=== PATIENT | female | born 1990 | race Caucasian/White ===

== ENCOUNTER 2017-01-25 10:31 | Emergency (ER) | payer MEDICAID ==
[~2017-01-25] VITALS: Ht 170.2 cm; Wt 68.0 kg
[2017-01-25 10:32] VITALS: BP 124/77; PULSE 87; RESP 18; TEMP 97.9; O2SAT 99
[2017-01-25] MEDS ORDERED: SODIUM CHLOR 0.9% 1000 ML INJ 1,000 ML IV SCH (10:49)
--- NOTE | 2017-01-25 10:55 | PD ---
HPI Chief Complaint: GI Complaint Time Seen by Provider: 10:44 Travel History International Travel<30 days: No Contact w/Intl Traveler<30days: No Traveled to known affect area: No History of Present Illness HPI Patient is a 26-year-old female who presents to emergency with complaints of abdominal pain. Patient reports that she is having increased upper abdominal pain which has been ongoing and constant for the past 2 weeks. Reports that she feels nauseous with symptoms, no vomiting. Reports that she has had a few episodes of diarrhea. Reports that due to her symptoms, she has had overall decreased oral intake. Patient reports that she is sexually active, patient unsure if she may be this time. Patient with no fevers or chills, no sick contacts, no recent travels. Denies vaginal discharge or bleeding PFSH Past Medical History Medical History: Denies Significant Hx Influenza Vaccination: No ?: Unknown LMP: BEGINNING DECEMBER 2016 : 2 Para: 0 : 1 Past Surgical History Oral Surgery: Yes Social History Alcohol Use: No Tobacco Use: No Substance Use: No Allergies-Medications (Allergen,Severity, Reaction): Coded Allergies: ibuprofen (Unverified Allergy, Severe, Swelling, 01/25/17) Reported Meds & Prescriptions Reported Meds & Active Scripts Active Omeprazole 40 Mg Cap 40 Mg PO DAILY Review of Systems General / Constitutional: No: Fever, Chills Eyes: No: Visual changes HENT: No: Headaches Cardiovascular: No: Chest Pain or Discomfort Respiratory: No: Shortness of Breath Gastrointestinal: Positive: Nausea, Diarrhea, Abdominal Pain, No: Vomiting, Constipation Genitourinary: No: Urgency, Frequency, Dysuria Musculoskeletal: No: Pain Skin: No Rash Neurologic: No: Weakness, Dizziness Psychiatric: No: Depression Endocrine: No: Polydipsia Hematologic/Lymphatic: No: Easy Bruising Physical Exam Narrative GENERAL: Moderate distress SKIN: Focused skin assessment warm/dry. HEAD: Atraumatic. Normocephalic. EYES: Pupils equal and round. No scleral icterus. No injection or drainage. ENT: No nasal bleeding or discharge. Mucous membranes pink and moist. NECK: Trachea midline. No JVD. CARDIOVASCULAR: Regular rate and rhythm. No murmur appreciated. RESPIRATORY: No accessory muscle use. Clear to auscultation. Breath sounds equal bilaterally. GASTROINTESTINAL: Abdomen soft, increased lower abdominal tenderness with no rebound or guarding, nondistended. Hepatic and splenic margins not palpable. MUSCULOSKELETAL: No obvious deformities. No clubbing. No cyanosis. No edema. NEUROLOGICAL: Awake and alert. No obvious cranial nerve deficits. Motor grossly within normal limits. Normal speech. PSYCHIATRIC: Appropriate mood and affect; insight and judgment normal. Data Data Last Documented VS Vital Signs Date Time Temp Pulse Resp B/P (MAP) Pulse Ox O2 Delivery O2 Flow Rate FiO2 01/25/17 10:32 97.9 87 18 124/77 (93) 99 Room Air Orders Orders Complete Blood Count With Diff (01/25/17 10:49) Comprehensive Metabolic Panel (01/25/17 10:49) Prothrombin Time / Inr (Pt) (01/25/17 10:49) Act Partial Throm Time (Ptt) (01/25/17 10:49) Urinalysis - C+S If Indicated (01/25/17 10:49) Ct Abd/Pel W Iv Contrast(Rout) (01/25/17 10:49) Iv Access Insert/Monitor (01/25/17 10:49) Ecg Monitoring (01/25/17 10:49) Oximetry (01/25/17 10:49) Ondansetron Inj (Zofran Inj) (01/25/17 11:00) Sodium Chlor 0.9% 1000 Ml Inj (Ns 1000 M (01/25/17 10:49) Sodium Chloride 0.9% Flush (Ns Flush) (01/25/17 11:00) Famotidine Inj (Pepcid Inj) (01/25/17 11:00) Ed Urine Pregnancytest Poc (01/25/17 10:49) Iohexol 350 Inj (Omnipaque 350 Inj) (01/25/17 11:34) Ed Discharge Order (01/25/17 12:32) Labs Laboratory Tests Test 01/25/17 10:57 White Blood Count 6.6 TH/MM3 Red Blood Count 4.52 MIL/MM3 Hemoglobin 13.2 GM/DL Hematocrit 39.7 % Mean Corpuscular Volume 87.9 FL Mean Corpuscular Hemoglobin 29.2 PG Mean Corpuscular Hemoglobin Concent 33.2 % Red Cell Distribution Width 14.7 % Platelet Count 189 TH/MM3 Mean Platelet Volume 8.6 FL Neutrophils (%) (Auto) 65.1 % Lymphocytes (%) (Auto) 26.3 % Monocytes (%) (Auto) 5.5 % Eosinophils (%) (Auto) 2.6 % Basophils (%) (Auto) 0.5 % Neutrophils # (Auto) 4.3 TH/MM3 Lymphocytes # (Auto) 1.7 TH/MM3 Monocytes # (Auto) 0.4 TH/MM3 Eosinophils # (Auto) 0.2 TH/MM3 Basophils # (Auto) 0.0 TH/MM3 CBC Comment DIFF FINAL Differential Comment Prothrombin Time 11.4 SEC Prothromb Time International Ratio 1.0 RATIO Activated Partial Thromboplast Time 28.3 SEC Urine Color YELLOW Urine Turbidity CLEAR Urine pH 6.0 Urine Specific [place] 1.028 Urine Protein 30 mg/dL Urine Glucose (UA) NEG mg/dL Urine Ketones 150 mg/dL Urine Occult Blood NEG Urine Nitrite NEG Urine Bilirubin NEG Urine Urobilinogen 2.0 MG/DL Urine Leukocyte Esterase NEG Urine RBC LESS THAN 1 /hpf Urine WBC 2 /hpf Urine Squamous Epithelial Cells 1 /hpf Urine Mucus MANY /lpf Microscopic Urinalysis Comment CULT NOT INDICATED Blood Urea Nitrogen 13 MG/DL Creatinine 0.74 MG/DL Random Glucose 79 MG/DL Total Protein 8.2 GM/DL Albumin 4.4 GM/DL Calcium Level 9.0 MG/DL Alkaline Phosphatase 49 U/L Aspartate Amino Transf (AST/SGOT) 11 U/L Alanine Aminotransferase (ALT/SGPT) 15 U/L Total Bilirubin 1.0 MG/DL Sodium Level 138 MEQ/L Potassium Level 3.8 MEQ/L Chloride Level 105 MEQ/L Carbon Dioxide Level 20.7 MEQ/L Anion Gap 12 MEQ/L Estimat Glomerular Filtration Rate 95 ML/MIN [facility] Medical Decision Making Medical Screen Exam Complete: Yes Emergency Medical Condition: Yes Medical Record Reviewed: Yes Interpretation(s) Vital Signs Date Time Temp Pulse Resp B/P (MAP) Pulse Ox O2 Delivery O2 Flow Rate FiO2 01/25/17 10:32 97.9 87 18 124/77 (93) 99 Room Air Differential Diagnosis Differential includes gastritis, gastroenteritis, esophagitis Narrative Course During the course of the patients emergency department visit, the patients history, examination, and differential diagnosis were reviewed with the patient. The patient was placed on a satellite project site monitor with oximetry and frequent blood pressure monitoring. The patient had 20 gauge IV access obtained and blood work sent for analysis. The patient was initially provided IVF, IV pepcid and zofran. The patients laboratory studies were reviewed and remarkable for: CBC: wnl BMP: carbon dioxide 20.7, sodium 138, potassium 3.8, BUN 13, creatinine 0.74, LFT's: WNL UA: Many mucous, 150 ketones, 30 protein Radiology studies were reviewed and remarkable for: Negative CT of the abdomen pelvis with contrast other than splenic cyst and probable left ovarian cyst Patient is feeling much better at this time. I reviewed all labs and all studies with patient in detail including all incidental findings. Copies of studies were given to patient as she understands that she will need to follow up with her pcp. Patient will follow-up with her primary care doctor and will return to emergency room as needed. Diagnosis Primary Impression: Gastritis Additional Impressions: Abdominal pain Dehydration Ovarian cyst Splenic cyst Patient Instructions: General Instructions Additional Instructions: Please provide patient with a copy of their lab work and studies at discharge* * Please follow up with your primary care doctor in 2-3 days Return to the ER if symptoms worsen or progress Return to the ER as needed Med/Other Pt SpecificInfo: Prescription(s) given Scripts Omeprazole (Omeprazole) 40 Mg Cap 40 MG PO DAILY, #30 CAP 0 Refills Prov: Lorna Hopkins DO 01/25/17 Disposition: 01 DISCHARGE HOME Condition: Stable Lorna Hopkins DO Jan 25, 2017 10:55
[2017-01-25] MEDS ORDERED: SODIUM CHLORIDE 0.9% FLUSH 10 ML FLUSH IV FLUSH PRN (11:00)
[2017-01-25] MEDS ORDERED: FAMOTIDINE 20 MG/2 ML VIAL IV PUSH ONE (11:00)
[2017-01-25] MEDS ORDERED: ONDANSETRON HCL 4 MG/2 ML VIAL IVP ONE (11:00)
[2017-01-25 11:17] LABS: AUTOMATED NEUTROPHIL # 4.3 TH/MM3 (1.8-7.7); BASOPHIL % 0.5 % (0.0-2.0); EOSINOPHIL # 0.2 TH/MM3 (0-0.4); EOSINOPHIL % 2.6 % (0.0-4.0); HEMATOCRIT 39.7 % (35.0-46.0); HEMO FLAGS DIFF FINAL; LYMPH % 26.3 % (9.0-44.0); LYMPHOCYTE # 1.7 TH/MM3 (1.0-4.8); MEAN CELL VOLUME 87.9 FL (80.0-100.0); MEAN CORPUSCULAR HEMOGLOBIN 29.2 PG (27.0-34.0); MEAN CORPUSCULAR HGB CONC 33.2 % (32.0-36.0); MONO % 5.5 % (0.0-8.0); NEUT % 65.1 % (16.0-70.0); PLATELET COUNT 189 TH/MM3 (150-450); RED BLOOD COUNT 4.52 MIL/MM3 (4.00-5.30); RED CELL DISTRIBUTION WIDTH 14.7 % (11.6-17.2); WHITE BLOOD COUNT 6.6 TH/MM3 (4.0-11.0)
[2017-01-25 11:29] LABS: APTT (PATIENT) 28.3 SEC (24.3-30.1); PROTHROMBIN TIME - PATIENT 11.4 SEC (9.8-11.6)
[2017-01-25] MEDS ORDERED: IOHEXOL 350 MG/ML 10 ML VIAL (for RAD DIAG) IVCONTRAST ONE (11:34)
[2017-01-25 11:36] LABS: ALT (GPT) 15 U/L (10-53); ANION GAP 12 MEQ/L (5-15); AST (GOT) 11 U/L (15-37); BICARBONATE 20.7 MEQ/L (21.0-32.0); BLOOD UREA NITROGEN 13 MG/DL (7-18); BLOOD, URINE NEG (NEG); CHLORIDE 105 MEQ/L (98-107); COMMENT (UR) CULT NOT INDICATED; CULTURE IF INDICATED CULT NOT INDICATED; GLOMERULAR FILTRATION RATE 95 ML/MIN (>89); GLUCOSE,URINE NEG (NEG); KETONE, URINE 150 mg/dL (NEG); MUCUS URINE MANY /lpf (OCC); NITRITE,URINE NEG (NEG); POTASSIUM 3.8 MEQ/L (3.5-5.1); SODIUM (NA) 138 MEQ/L (136-145); SQUAMOUS EPITHELIAL CELL URINE 1 /hpf (0-5); URINE COLOR YELLOW (YELLW/STRAW)
[2017-01-25 11:37] LABS: ALKALINE PHOSPHATASE 49 U/L (45-117)
--- NOTE | 2017-01-25 12:06 | RADRPT ---
EXAM DATE/TIME: 01/25/2017 11:32 [facility] COMPARISON: No previous studies available for comparison. INDICATIONS : Nausea for 2 weeks IV CONTRAST: 85 cc Omnipaque 350 (iohexol) IV ORAL CONTRAST: No oral contrast ingested. RADIATION DOSE: 7.73 CTDIvol (mGy) MEDICAL HISTORY : None SURGICAL HISTORY : None. ENCOUNTER: Initial ACUITY: 2 weeks PAIN SCALE: 3/10 LOCATION: abdomen TECHNIQUE: Volumetric scanning of the abdomen and pelvis was performed. Using automated exposure control and ad justment of the mA and/or kV according to patient size, radiation dose was kept as low as reasonably achievable to obtain optimal diagnostic quality images. DICOM format image data is available electro nically for review and comparison. FINDINGS: LOWER LUNGS: The visualized lower lungs are clear. LIVER: Homogeneous density without lesion. There is no dilation of the biliary tree. No calcified gallston es. SPLEEN: 6.5 cm simple cyst in the medial upper pole of the spleen with smooth margins and no calcifications. PANCREAS: Within normal limits. KIDNEYS: Normal in size and shape. There is no mass, stone or hydronephrosis. ADRENAL GLANDS: Within normal limits. VASCULAR: There is no aortic aneurysm. BOWEL/MESENTERY: No dilated loops of small or large bowel. ABDOMINAL WALL: Within normal limits. RETROPERITONEUM: There is no lymphadenopathy. BLADDER: No wall thickening or mass. REPRODUCTIVE: IUD in the anteverted uterus. Fullness in the left adnexa with probable ovarian cysts. No evidence of free fluid. INGUINAL: There is no lymphadenopathy or hernia. MUSCULOSKELETAL: Within normal limits for patient age. CONCLUSION: Negative CT abdomen/pelvis with contrast other than splenic cyst and probable left ovarian cyst. Phoenix Carrasquillo MD on January 25, 2017 at 11:43 Board Certified Radiologist. This report was verified electronically.
[2017-01-25] MEDS ORDERED: OMEP40CA2 PO (12:25)
== END 2017-01-25 12:44 | disposition home or self-care (01) ==
LOC: NEPD 10:31
DX: K29.70 Gastritis, unspecified, without bleeding (principal); E86.0 Dehydration; D73.4 Cyst of spleen
CPT/HCPCS: 74177; 80053; 81001; 84703; 85025; 85610; 85730; 96361; 96374; 96375; 99285; J2405; J7030; Q9967

== ENCOUNTER 2017-01-28 23:22 | Emergency (ER) | payer MEDICAID ==
[~2017-01-28] VITALS: Ht 170.2 cm; Wt 70.0 kg
[~2017-01-28 23:22] MED LIST: OMEP40CA2 PO
[2017-01-28 23:23] VITALS: BP 118/81; PULSE 84; RESP 14; TEMP 98.3; O2SAT 99
[2017-01-29 02:00] VITALS: BP 117/75; PULSE 84; RESP 18; O2SAT 99
[2017-01-29] MEDS ORDERED: ONDANSETRON HCL 4 MG/2 ML VIAL IV PUSH ONE ×2 (02:45→05:15)
[2017-01-29] MEDS ORDERED: MORPHINE SULFATE 4 MG/ML INJ IV PUSH ONE (02:45)
[2017-01-29 03:08] LABS: BLOOD, URINE NEG (NEG); CALCIUM OXALATE CRYSTALS,URINE OCC /hpf; GLUCOSE,URINE NEG (NEG); KETONE, URINE 10 mg/dL (NEG); MUCUS URINE MANY /lpf (OCC); NITRITE,URINE NEG (NEG); PH, URINE 5.5 (5.0-8.5); SQUAMOUS EPITHELIAL CELL URINE <1 /hpf (0-5); URINE COLOR YELLOW (YELLW/STRAW)
[2017-01-29 03:09] LABS: COMMENT (UR) CULT NOT INDICATED; CULTURE IF INDICATED CULT NOT INDICATED
--- NOTE | 2017-01-29 03:10 | PD ---
HPI Chief Complaint: Flank/Kidney Pain Time Seen by Provider: 02:31 Travel History International Travel<30 days: No Contact w/Intl Traveler<30days: No Traveled to known affect area: No History of Present Illness HPI 26yo F presents to the ED with c/o left sided flank pain today. Associated with nausea. No alleviating or exacerbating factors. Denies any fever, chest pain, sob, dysuria, hematuria, vaginal bleeding or discharge. PFSH Past Medical History ?: Not LMP: 01/16/17 : 2 Para: 0 : 1 Past Surgical History Oral Surgery: Yes Social History Alcohol Use: No Tobacco Use: No Substance Use: No Allergies-Medications (Allergen,Severity, Reaction): Coded Allergies: ibuprofen (Unverified Allergy, Severe, Swelling, 01/29/17) Reported Meds & Prescriptions Reported Meds & Active Scripts Active Omeprazole 40 Mg Cap 40 Mg PO DAILY Review of Systems Except as stated in HPI: all other systems reviewed are Neg Physical Exam Narrative GENERAL: 26yo F in mild distress. SKIN: Focused skin assessment warm/dry. HEAD: Atraumatic. Normocephalic. EYES: Pupils equal and round. No scleral icterus. No injection or drainage. CARDIOVASCULAR: Regular rate and rhythm. No murmur appreciated. RESPIRATORY: No accessory muscle use. Clear to auscultation. Breath sounds equal bilaterally. GASTROINTESTINAL: Abdomen +TTP left flank. No rebound tenderness or guarding. MUSCULOSKELETAL: No obvious deformities. No clubbing. No cyanosis. No edema. NEUROLOGICAL: Awake and alert. No obvious cranial nerve deficits. Motor grossly within normal limits. Normal speech. PSYCHIATRIC: Appropriate mood and affect; insight and judgment normal. Data Data Last Documented VS Vital Signs Date Time Temp Pulse Resp B/P (MAP) Pulse Ox O2 Delivery O2 Flow Rate FiO2 01/29/17 04:38 79 18 121/76 (91) 97 Room Air 01/28/17 23:23 98.3 Orders Orders Ed Urine Pregnancytest Poc (01/29/17 02:37) Urinalysis - C+S If Indicated (01/29/17 02:37) Complete Blood Count With Diff (01/29/17 02:37) Basic Metabolic Panel (Bmp) (01/29/17 02:37) Ct Abd/Pel W/O Iv Contrast (01/29/17 ) Ondansetron Inj (Zofran Inj) (01/29/17 02:45) Morphine Inj (Morphine Inj) (01/29/17 02:45) Ondansetron Inj (Zofran Inj) (01/29/17 05:15) Labs Laboratory Tests Test 01/29/17 02:50 White Blood Count 6.4 TH/MM3 Red Blood Count 4.39 MIL/MM3 Hemoglobin 12.8 GM/DL Hematocrit 38.2 % Mean Corpuscular Volume 87.2 FL Mean Corpuscular Hemoglobin 29.2 PG Mean Corpuscular Hemoglobin Concent 33.5 % Red Cell Distribution Width 14.3 % Platelet Count 171 TH/MM3 Mean Platelet Volume 8.6 FL Neutrophils (%) (Auto) 54.0 % Lymphocytes (%) (Auto) 30.3 % Monocytes (%) (Auto) 6.0 % Eosinophils (%) (Auto) 9.1 % Basophils (%) (Auto) 0.6 % Neutrophils # (Auto) 3.4 TH/MM3 Lymphocytes # (Auto) 1.9 TH/MM3 Monocytes # (Auto) 0.4 TH/MM3 Eosinophils # (Auto) 0.6 TH/MM3 Basophils # (Auto) 0.0 TH/MM3 CBC Comment DIFF FINAL Differential Comment Urine Color YELLOW Urine Turbidity HAZY Urine pH 5.5 Urine Specific [place] 1.018 Urine Protein TRACE mg/dL Urine Glucose (UA) NEG mg/dL Urine Ketones 10 mg/dL Urine Occult Blood NEG Urine Nitrite NEG Urine Bilirubin NEG Urine Urobilinogen LESS THAN 2.0 MG/DL Urine Leukocyte Esterase NEG Urine RBC 2 /hpf Urine WBC 2 /hpf Urine Squamous Epithelial Cells <1 /hpf Urine Calcium Oxalate Crystals OCC /hpf Urine Mucus MANY /lpf Microscopic Urinalysis Comment CULT NOT INDICATED Blood Urea Nitrogen 11 MG/DL Creatinine 0.93 MG/DL Random Glucose 85 MG/DL Calcium Level 8.9 MG/DL Sodium Level 140 MEQ/L Potassium Level 3.4 MEQ/L Chloride Level 106 MEQ/L Carbon Dioxide Level 25.8 MEQ/L Anion Gap 8 MEQ/L Estimat Glomerular Filtration Rate 73 ML/MIN [facility] Medical Decision Making Medical Screen Exam Complete: Yes Emergency Medical Condition: Yes Differential Diagnosis Pyelonephritis vs. nephrolithiasis vs. musculoskeletal pain Narrative Course 26yo F with left flank pain and nausea. Labs reviewed, no leukocytosis. BMP unremarkable. UA showed occasional calcium oxylate crystal. No leukocyte. Urine . CT a/p showed no renal or ureteral calculi. No hydronephrosis. 7cm hypodense mass in spleen that represent a mass. Instructed pt to follow up with primary care physician as outpatient. Pt given morphine and zofran and pain has resolved. Return precautions given. Diagnosis Primary Impression: Abdominal pain Qualified Codes: R10.12 - Left upper quadrant pain Patient Instructions: General Instructions Departure Forms: Tests/Procedures Additional Instructions: 7cm round cyst was again identified in the spleen. Please follow up with your primary care physician regarding this. Return to the ED if symptoms worsen. Med/Other Pt SpecificInfo: Prescription(s) given Scripts Acetaminophen (Tylenol) 325 Mg Tab 650 MG PO Q6H Y for PAIN SCALE 1 TO 4, #20 TAB 0 Refills Prov: Radha High 01/29/17 Disposition: 01 DISCHARGE HOME Condition: Stable Radha High DO Jan 29, 2017 03:10
[2017-01-29 03:19] LABS: BICARBONATE 25.8 MEQ/L (21.0-32.0); POTASSIUM 3.4 MEQ/L (3.5-5.1)
[2017-01-29 03:25] LABS: AUTOMATED NEUTROPHIL # 3.4 TH/MM3 (1.8-7.7); BASOPHIL % 0.6 % (0.0-2.0); EOSINOPHIL # 0.6 TH/MM3 (0-0.4); EOSINOPHIL % 9.1 % (0.0-4.0); HEMATOCRIT 38.2 % (35.0-46.0); HEMO FLAGS DIFF FINAL; LYMPH % 30.3 % (9.0-44.0); LYMPHOCYTE # 1.9 TH/MM3 (1.0-4.8); MEAN CELL VOLUME 87.2 FL (80.0-100.0); MEAN CORPUSCULAR HEMOGLOBIN 29.2 PG (27.0-34.0); MEAN CORPUSCULAR HGB CONC 33.5 % (32.0-36.0); PLATELET COUNT 171 TH/MM3 (150-450); RED BLOOD COUNT 4.39 MIL/MM3 (4.00-5.30); RED CELL DISTRIBUTION WIDTH 14.3 % (11.6-17.2); WHITE BLOOD COUNT 6.4 TH/MM3 (4.0-11.0)
--- NOTE | 2017-01-29 03:28 | RADRPT ---
EXAM DATE/TIME: 01/29/2017 03:03 [facility] COMPARISON: No previous studies available for comparison. INDICATIONS : Left flank pain. Evaluate for calculi. ORAL CONTRAST: No oral contrast ingested. RADIATION DOSE: 5.86 CTDIvol (mGy) MEDICAL HISTORY : None SURGICAL HISTORY : None. ENCOUNTER: Initial ACUITY: 2 days PAIN SCALE: 5/10 LOCATION: Left flank TECHNIQUE: Volumetric scanning of the abdomen and pelvis was performed. Using automated exposure control and ad justment of the mA and/or kV according to patient size, radiation dose was kept as low as reasonably achievable to obtain optimal diagnostic quality images. DICOM format image data is available electro nically for review and comparison. FINDINGS: LOWER LUNGS: The visualized lower lungs are clear. LIVER: Homogeneous density without lesion. There is no dilation of the biliary tree. No calcified gallston es. SPLEEN: 7 cm round cyst again identified medial anterior aspect of the spleen PANCREAS: Within normal limits. KIDNEYS: Normal in size and shape. There is no mass, stone, or hydronephrosis. ADRENAL GLANDS: Within normal limits. VASCULAR: There is no aortic aneurysm. BOWEL/MESENTERY: No evidence of bowel dilatation. No free air or free fluid. Appendix within normal limits. ABDOMINAL WALL: Within normal limits. RETROPERITONEUM: There is no lymphadenopathy. BLADDER: No wall thickening or mass. REPRODUCTIVE: IUD is seen centered in the uterus. INGUINAL: There is no lymphadenopathy or hernia. MUSCULOSKELETAL: Within normal limits for patient age. CONCLUSION: 1. No renal or ureteral calculi. No hydronephrosis. 2. 7 cm round hypodense mass in the spleen. Shown to represent a cyst on recent contrast-enhanced krissy dy. Johnny Smith MD on January 29, 2017 at 3:15 Board Certified Radiologist. This report was verified electronically.
[2017-01-29 04:38] VITALS: BP 121/76; PULSE 79; RESP 18; O2SAT 97
[2017-01-29] MEDS ORDERED: TYLE325T PO (05:14)
== END 2017-01-29 05:34 | disposition home or self-care (01) ==
LOC: NEPE 23:22
DX: R10.12 Left upper quadrant pain (principal); R11.0 Nausea; Z88.6 Allergy status to analgesic agent; Z79.899 Other long term (current) drug therapy
CPT/HCPCS: 74176; 80048; 81001; 84703; 85025; 96374; 96375; 96376; 99285; J2270; J2405